=== PATIENT | male | born 1975 | race Caucasian/White ===

== ENCOUNTER 2019-12-30 12:09 | Outpatient (REF) | payer OTHER, SELFPAY ==
[2019-12-30 13:54] LABS: MANUAL DIFF FLAG NO
[2019-12-30 13:58] LABS: Basophils Percent Auto 0.5 % (0-2); Eosinophils Absolute Auto 0.2 X10*3/uL (0.0-0.4); Eosinophils Percent Auto 2.5 % (0-4); Hematocrit 45.5 % (42-52); Hemoglobin 15.2 g/dl (14.0-18.0); Imm Gran Abs Auto 0.03 X10*3/uL (0.00-0.03); Imm Gran Pct Auto 0.4 % (0.0-0.4); Lymphocytes Absolute Auto 2.3 X10*3/uL (1.2-4.9); Lymphocytes Percent Auto 28.7 % (20-40); Mean Corpuscular HGB Conc 33.4 g/dl (31.0-36.0); Mean Corpuscular Volume 89.7 fL (80-98); Mean Platelet Volume 11.9 fL (9.4-12.4); Monocytes Absolute Auto 0.4 X10*3/uL (0.1-1.2); Monocytes Percent Auto 4.3 % (2-11); Neutrophils Absolute Auto 5.2 X10*3/uL (2.0-8.3); Neutrophils Percent Auto 63.6 % (45-73); Platelet Count 260 X10*3/uL (160-400); Red Blood Count 5.07 X10*6/uL (4.60-5.80); Red Cell Distribution Width 12.5 % (11.0-16.0); White Blood Count 8.1 X10*3/uL (4.8-10.8)
[2019-12-30 14:29] LABS: Anion Gap 14 (12-20); Blood Urea Nitrogen 16 mg/dL (9-16); Calcium 9.2 mg/dL (8.4-10.2); Carbon Dioxide 28 mmol/L (22-29); Chloride 104 mmol/L (96-108); Estimated Glomerular Filt Rate > 60; Glucose Fasting 64 mg/dL (60-99); Iron 116 mcg/dL (45-160); Percent Iron Saturation 37 % (15-50); Potassium 4.5 mmol/l (3.3-5.1); Sodium 141 mmol/L (135-145); Total Iron Binding Capacity 311 mcg/dL (228-428); Unsaturated Iron Binding 195 ug/dL
[2019-12-30 14:39] LABS: Ferritin 193 ng/mL (20-250); TSH reflex Free T4 1.22 mIU/mL (0.32-4.0)
[2019-12-30 14:45] LABS: Vitamin B12 314 pg/mL (200-900)
== END 2019-12-30 12:10 | disposition home or self-care (01) ==
LOC: HO.HMGCLDS 12:09
PROVIDERS: PCP Nurse Practitioner Family; Visit Provider Nurse Practitioner Family
DX: R53.83 Other fatigue (principal)
CPT/HCPCS: 36415; 80048; 82607; 82728; 83540; 84443; 85025

== ENCOUNTER 2021-01-12 12:22 | Emergency (ER) | payer OTHER, SELFPAY ==
[2021-01-12 12:25] VITALS: BP 114/74; PULSE 77; RESP 17; TEMP 36.9; O2SAT 97; BMI 27.4
== END 2021-01-12 14:07 | disposition left against medical advice (07) ==
PROVIDERS: Emergency Provider Emergency Medicine; PCP Nurse Practitioner Family
DX: R51.9 Headache, unspecified (principal); R50.9 Fever, unspecified
CPT/HCPCS: 99281; 99282

== ENCOUNTER 2021-04-18 16:10 | Emergency (ER) | payer OTHER, SELFPAY ==
--- NOTE | ~2021-04-18 | CT_ITS ---
EXAMINATION: CT HEAD WITHOUT CONTRAST CLINICAL INFORMATION: Headache. COMPARISON: None. TECHNIQUE: Contiguous axial imaging was performed from the skull base to vertex without intravenous administration of contrast. This CT examination was performed using dose optimization techniques as appropriate, variously including the following: *Automated exposure control *Adjustment of mA and/or kV according to patient size (this includes techniques or standardized protocols for targeted exams where dose is matched to indication/reason for exam; i.e. extremities or head) *Use of iterative reconstruction technique DLP: 763 mGy-cm FINDINGS: There is no evidence of acute intracranial hemorrhage or edematous territorial infarction. There is no abnormal attenuation within the brain parenchyma. Zayas-white matter differentiation is preserved. The ventricles are normal in size and configuration. No evidence for obstructive hydrocephalus. No abnormal mass effect or midline shift. No extra-axial fluid collections. No acute soft tissue or osseous abnormalities. The mastoid air cells and paranasal sinuses are clear. CT/CT head/brain wo con IMPRESSION: No evidence of acute intracranial hemorrhage or edematous territorial infarction.
[2021-04-18 16:48] VITALS: BP 113/75; PULSE 78; RESP 16; TEMP 37.1; O2SAT 97; BMI 27.4
[2021-04-18 17:00] LABS: MANUAL DIFF FLAG NO
[2021-04-18 17:07] LABS: Basophils Absolute Auto 0.1 X10*3/uL (0.0-0.2); Basophils Percent Auto 0.6 % (0-2); Eosinophils Absolute Auto 0.4 X10*3/uL (0.0-0.4); Eosinophils Percent Auto 4.2 % (0-4); Hematocrit 41.8 % (42.0-52.0); Hemoglobin 14.4 g/dl (14.0-18.0); Imm Gran Abs Auto 0.03 X10*3/uL (0.00-0.03); Imm Gran Pct Auto 0.3 % (0.0-0.4); Lymphocytes Absolute Auto 2.6 X10*3/uL (1.2-4.9); Lymphocytes Percent Auto 30.4 % (20-40); Mean Corpuscular HGB Conc 34.4 g/dl (31.0-36.0); Mean Corpuscular Hemoglobin 30.3 pg (27.0-33.0); Mean Corpuscular Volume 87.8 fL (80.0-98.0); Mean Platelet Volume 10.8 fL (9.4-12.4); Monocytes Absolute Auto 0.5 X10*3/uL (0.1-1.2); Neutrophils Absolute Auto 5.1 x10*3/uL (2.0-8.3); Neutrophils Percent Auto 58.5 % (45-73); Platelet Count 261 X10*3/uL (160-400); Red Blood Count 4.76 X10*6/uL (4.60-5.80); Red Cell Distribution Width 12.9 % (11.0-16.0); White Blood Count 8.6 X10*3/uL (4.8-10.8)
[2021-04-18 17:23] LABS: Anion Gap 11 (12-20); Blood Urea Nitrogen 15 mg/dL (9-16); Calcium 9.9 mg/dL (8.4-10.2); Carbon Dioxide 30 mmol/L (22-29); Chloride 106 mmol/L (96-108); D Dimer High Sensitivity < 150 NG/ML; Estimated Glomerular Filt Rate > 60; Glucose Random 83 mg/dL (60-115); Potassium 4.6 mmol/L (3.3-5.1); Sodium 142 mmol/L (135-145)
[2021-04-18 19:34] VITALS: BP 134/67; PULSE 83; RESP 16; O2SAT 99
--- NOTE | 2021-04-18 19:39 | ED_ITS ---
HPI - Headache General Chief Complaint: Headache Stated Complaint: head pain Time Seen by Provider: 04/18/21 19:38 Source: patient Mode of arrival: ambulatory Limitations: no limitations History of Present Illness HPI Narrative: Patient is a 46 year old male presenting to the emergency department today with a headache. Patient states that for the last 3 weeks he has had a headache. Patient describes the headache as being diffuse and not in a specific area. Patient denies any dizziness, lightheadedness, abdominal pain, nausea, vomiting, fever, chills, blurry vision, double vision, loss of vision, chest pain, difficulty breathing, shortness of breath, back pain, night sweats, pain with urination, increased urinary frequency, increased urinary urgency, blood in his urine or stool, syncope or a near syncopal episode, recent trauma or falls, bowel incontinence, bladder incontinence, bowel retention, bladder retention, or any other complaints at this time. MD elicited complaint: headache Onset (ago): week(s) (3) Location: diffuse Related Data Home Medications Medication Instructions Recorded Confirmed buprenorphine 8 mg-naloxone 2 mg See Rx Instructions SUBLINGUAL 04/18/21 sublingual film DAILY Previous Rx's Medication Instructions Recorded cyclobenzaprine 5 mg tablet 5 mg PO BEDTIME PRN #10 tab 10/11/20 prednisone 20 mg tablet 20 mg PO .COMPLEX #18 tab 10/11/20 Allergies Allergy/AdvReac Type Severity Reaction Status Date / Time No Known Allergies Allergy Verified 04/18/21 15:37 Review of Systems Constitutional: Constitutional: Reports no additional constitutional complaints, Denies chills, Denies fever(s) and Denies night sweats Eyes: Eyes: Reports no additional eye complaints, Denies blurry vision, Denies change in vision, Denies diplopia, Denies eye discharge, Denies loss of vision and Denies eye pain ENT: Denies dizziness Cardiovascular: Cardiovascular: Reports no additional cardiovascular complaints, Denies chest pain, Denies lightheadedness, Denies Loss of Consciousness and Denies dyspnea Respiratory: Respiratory: Reports no additional respiratory complaints and Denies dyspnea Gastrointestinal: Gastrointestinal: Reports no additional gastrointestinal complaints, Denies abdominal pain, Denies melena, Denies hematochezia, Denies change in bowel habits and Denies change in stool character Genitourinary: Genitourinary: Reports no additional male genitourinary complaints, Denies hematuria, Denies oliguria, Denies difficulty urinating, Denies dysuria, Denies urinary frequency, Denies urinary hesitancy, Denies urinary incontinence and Denies urinary urgency Musculoskeletal: Musculoskeletal: Reports no additional musculoskeletal complaints, Denies numbness and Denies tingling Neurologic: Denies dizziness, Denies loss of vision, Denies numbness and Denies tingling Psychiatric: Psychiatric: Reports no additional psychiatric complaints Endocrine: Endocrine: Reports no additional endocrine complaints Hematologic/Lymphatic: Hematologic/Lymphatic: Reports no additional hematologic/lymphatic complaints Allergic/Immunologic: Allergic/Immunologic: Reports no additional allergic/immunologic complaints [facility] Past Medical History Attestation statement: The following information was validated with the patient. Source: old records reviewed Medical History Headache Hepatitis C Surgical History No pertinent past surgical history Family History Family History Father Depression Mother Liver failure Alcoholism Social History Social History Alcohol intake: never Patient Tobacco Use Status: Current everyday Tobacco user Years Smoked: since his 20s Advance Directives: No Physical Exam Vital Signs: Vital Signs: Last Vital Signs Temp 98.6 F 04/18/21 22:07 Pulse 74 04/18/21 22:07 Resp 18 04/18/21 22:07 BP 136/76 04/18/21 22:07 Pulse Ox 98 04/18/21 22:07 BMI result Body Mass Index 27.4 Const: General: cooperative, no acute distress, alert and awake Nutritional Appearance: well nourished Orientation/consciousness: patient oriented x3 Limitations: no limitations HENMT: Head: Yes normal to inspection and Yes atraumatic Ears: hearing grossly normal bilaterally and external ears normal General nose exam: Normal external nose present, no nasal discharge noted and no epistaxis Face and sinus: Yes normal facial exam, No abrasion and No laceration Mouth: Normal oral and palatal mucosa present, no drooling and no muffled voice Eyes: General: appearance normal, both eyes and all related structures Periorbital: periorbital findings normal Eyelids: Yes eyelids normal Conjunctivae: conjunctivae normal Pupils: Equal, round and reactive pupils present EOM: EOMs intact bilaterally Neck: Neck: Yes normal visual inspection, Yes full ROM and Yes no lymphadenopathy Chest: Chest palpation & inspection: normal inspection of the chest Resp: Effort & Inspection: normal respiratory effort and able to speak in complete sentences Auscultation: clear to auscultation bilaterally Cardio: Rate: regular rate Rhythm: regular rhythm GI: Inspection: Yes normal to inspection Neuro: General: patient oriented x3 and moves all extremities Cranial nerves: Yes Equal, round and reactive pupils present Cognition (Neuro): normal cognition Motor exam (neuro): 5/5 motor strength present throughout Sensory Exam: Normal double simultaneous stimulation for sensation Coordination: [id number] test normal Extrem: General: Yes normal to inspection, Yes full ROM and Yes capillary refill normal Psych: Appearance: grossly normal Mental Status: mental status grossly no rmal Affect: normal affect Attitude: cooperative Thought process: Normal thought process present Thought content: Normal thought content present Insight: Good insight present (Psych) MDM - Headache MDM Narrative Medical decision making narrative: Patient is a 46 year old male presenting to the emergency department today with a headache. Patient's physical exam was unremarkable including a normal neurological exam. Patient's blood work was unremarkable.Patient's head CT showed no acute process. I explained my physical exam findings as well as all test results to the patient. I answered all questions asked by the patient. I stressed the importance of the patient taking his medication as prescribed. I stressed the importance of the patient following up with his primary care provider. I stressed the importance of the patient returning to the emergency de partment immediately if his symptoms were to worsen or if he were to develop any dizziness, shortness of breath, difficulty breathing, chest pain, blurry vision, loss of vision, nausea, vomiting, abdominal pain, fever, chills, back pain, or any other complaints. Patient verbalized agreement and understanding with this treatment plan and discharge. Differential Diagnosis Differential diagnosis: Likely tension headache and headache Medical Records Attestation: I reviewed the patient's medical records. Lab Data Attestation: I reviewed the patient's lab results. Result diagrams: 04/18/21 16:57 04/18/21 16:57 Labs: Lab Results 04/18/21 04/18/21 04/18/21 Range/Units 16:57 16:57 16:57 WBC 8.6 (4.8-10.8) X10*3/uL RBC 4.76 (4.60-5.80) X10*6/uL Hgb 14.4 (14.0-18.0) g/dl Hct 41.8 L (42.0-52.0) % MCV 87.8 (80.0-98.0) fL MCH 30.3 (27.0-33.0) pg MCHC 34.4 (31.0-36.0) g/dl RDW 12.9 (11.0-16.0) % Plt Count 261 (160-400) X10*3/uL MPV 10.8 (9.4-12.4) fL Immature Gran % (Auto) 0.3 (0.0-0.4) % Neut % (Auto) 58.5 (45-73) % Lymph % (Auto) 30.4 (20-40) % Bartholomew % (Auto) 6.0 (2-11) % Eos % (Auto) 4.2 H (0-4) % Baso % (Auto) 0.6 (0-2) % Lymph # (Auto) 2.6 (1.2-4.9) X10*3/uL Bartholomew # (Auto) 0.5 (0.1-1.2) X10*3/uL Eos # (Auto) 0.4 (0.0-0.4) X10*3/uL Baso # (Auto) 0.1 (0.0-0.2) X10*3/uL Abs Immat Gran (auto) 0.03 (0.00-0.03) X10*3/uL Absolute Neuts (auto) 5.1 (2.0-8.3) x10*3/uL Absolute Nucleated RBC 0.000 (0.0-0.012) X10*3/uL Nucleated RBC % (auto) 0.0 (0.0-0.2) /100WBC D-Dimer High Sensitivty < 150 NG/ML Sodium 142 (135-145) mmol/L Potassium 4.6 (3.3-5.1) mmol/L Chloride 106 (96-108) mmol/L Carbon Dioxide 30 H (22-29) mmol/L Anion Gap 11 L (12-20) BUN 15 (9-16) mg/dL Creatinine 0.95 (0.5-1.4) mg/dL Estim Creat Clear Calc 97.0 Estimated GFR > 60 Random Glucose 83 (60-115) mg/dL Calcium 9.9 D (8.4-10.2) mg/dL Urine Color Urine Appearance Urine pH (5.0-8.0) Ur Specific [place] (1.005-1.025) Urine Protein (NEG-TRACE) MG/DL Urine Glucose (UA) (NEG) MG/DL Urine Ketones (NEG) MG/DL Urine Blood (NEG) Urine Nitrite (NEG) Ur Leukocyte Esterase (NEG) Urine RBC (0) /HPF Urine WBC (0-4) /HPF Ur Squamous Epith Cells /LPF Amorphous Sediment /LPF Urine Bacteria /LPF 04/18/21 Range/Units 19:47 WBC (4.8-10.8) X10*3/uL RBC (4.60-5.80) X10*6/uL Hgb (14.0-18.0) g/dl Hct (42.0-52.0) % MCV (80.0-98.0) fL MCH (27.0-33.0) pg MCHC (31.0-36.0) g/dl RDW (11.0-16.0) % Plt Count (160-400) X10*3/uL MPV (9.4-12.4) fL Immature Gran % (Auto) (0.0-0.4) % Neut % (Auto) (45-73) % Lymph % (Auto) (20-40) % Bartholomew % (Auto) (2-11) % Eos % (Auto) (0-4) % Baso % (Auto) (0-2) % Lymph # (Auto) (1.2-4.9) X10*3/uL Bartholomew # (Auto) (0.1-1.2) X10*3/uL Eos # (Auto) (0.0-0.4) X10*3/uL Baso # (Auto) (0.0-0.2) X10*3/uL Abs Immat Gran (auto) (0.00-0.03) X10*3/uL Absolute Neuts (auto) (2.0-8.3) x10*3/uL Absolute Nucleated RBC (0.0-0.012) X10*3/uL Nucleated RBC % (auto) (0.0-0.2) /100WBC D-Dimer High Sensitivty NG/ML Sodium (135-145) mmol/L Potassium (3.3-5.1) mmol/L Chloride (96-108) mmol/L Carbon Dioxide (22-29) mmol/L Anion Gap (12-20) BUN (9-16) mg/dL Creatinine (0.5-1.4) mg/dL Estim Creat Clear Calc Estimated GFR Random Glucose (60-115) mg/dL Calcium (8.4-10.2) mg/dL Urine Color YELLOW Urine Appearance CLEAR Urine pH 7.5 (5.0-8.0) Ur Specific [place] 1.020 (1.005-1.025) Urine Protein NEG (NEG-TRACE) MG/DL Urine Glucose (UA) NEG (NEG) MG/DL Urine Ketones NEG (NEG) MG/DL Urine Blood NEG (NEG) Urine Nitrite NEG (NEG) Ur Leukocyte Esterase NEG (NEG) Urine RBC 0-2 (0) /HPF Urine WBC 0-2 (0-4) /HPF Ur Squamous Epith Cells NONE /LPF Amorphous Sediment 4+ /LPF Urine Bacteria NONE /LPF Imaging Data CT scan - head: Attestation: I personally reviewed and interpreted this imaging study as follows: Radiologist's impression: EXAMINATION: CT HEAD WITHOUT CONTRAST CLINICAL INFORMATION: Headache.? COMPARISON: None. TECHNIQUE: Contiguous axial imaging was performed from the skull base to vertex without intravenous administration of contrast. This CT examination was performed using dose optimization techniques as appropriate, variously including the following: *Automated exposure control *Adjustment of mA and/or kV according to patient size (this includes techniques or standardized protocols for targeted exams where dose is matched to indication/reason for exam; i.e. extremities or head) *Use of iterative reconstruction technique DLP: 763 mGy-cm FINDINGS: There is no evidence of acute intracranial hemorrhage or edematous territorial infarction. There is no abnormal attenuation within the brain parenchyma. Zayas-white matter differentiation is preserved. The ventricles are normal in size and configuration. No evidence for obstructive hydrocephalus. No abnormal mass effect or midline shift. No extra-axial fluid collections. No acute soft tissue or osseous abnormalities. The mastoid air cells and paranasal sinuses are clear. CT/CT head/brain wo con IMPRESSION: No evidence of acute intracranial hemorrhage or edematous territorial infarction. Dictated By: Cathy Saleem Signed By: Electronically signed by Cathy? Stiven 04/18/212115 Discharge Plan Discharge Clinical Impression: Headache Patient Disposition: Home, Self-Care Instructions: Acute Headache (ED), Acute Headache (DC) Additional Instructions: Follow up with your primary care provider. Return to the emergency department immediately if your symptoms worsen or if you develop any dizziness, shortness of breath, difficulty breathing, chest pain, blurry vision, loss of vision, nausea, vomiting, abdominal pain, fever, chills, back pain, or any other com plaints. Prescriptions: No Action cyclobenzaprine 5 mg tablet 5 mg PO BEDTIME PRN (Reason: muscle spasm) Qty: 10 0RF prednisone 20 mg tablet 20 mg PO .COMPLEX Qty: 18 0RF Rx Instructions: 20 mg PO 3 p.o. daily for 3 days followed by 2 p.o. daily for 3 days fo llowed by 1 p.o. daily for 3 days; buprenorphine-naloxone 8-2 mg film See Rx Instructions sublingual DAILY 0RF Rx Instructions: 8 sublingual daily; Referrals: Nathan Acevedo FNP-BC [Primary Care Provider] - 2 days Stand Alone Forms: Work/School Release Interventions: ED Discharge Assessment Last Done: 04/18/21 22:06 Discharge Date/Time: 04/18/21 22:08 Print Language: Korean
[2021-04-18 19:54] LABS: Appearance Urine CLEAR; Color Urine YELLOW; Glucose Urine UA NEG (NEG); Leukocyte Esterase Urine NEG (NEG); Nitrite Urine NEG (NEG); PH 7.5 (5.0-8.0); Urine Blood NEG (NEG); Urine Ketones NEG (NEG); Urine Protein NEG (NEG-TRACE)
[2021-04-18 20:00] LABS: Amorphous Sediment Urine 4+ /LPF; RBC Urine 0-2 /HPF (0); WBC Urine 0-2 /HPF (0-4)
[2021-04-18 21:28] VITALS: BP 121/81; PULSE 71; RESP 18; TEMP 37; O2SAT 98
[2021-04-18 22:07] VITALS: BP 136/76; PULSE 74; RESP 18; TEMP 37; O2SAT 98
== END 2021-04-18 22:08 | disposition home or self-care (01) ==
PROVIDERS: Emergency Provider Emergency Medicine Emergency Medical Services; PCP Nurse Practitioner Family
DX: R51.9 Headache, unspecified (principal); F17.200 Nicotine dependence, unspecified, uncomplicated
CPT/HCPCS: 36415; 70450; 80048; 81001; 85025; 85379; 99284

== ENCOUNTER 2021-12-17 10:05 | Outpatient (REF) | payer OTHER, SELFPAY ==
[2021-12-17 11:25] LABS: Appearance Urine Clear; Color Urine Yellow; Glucose Urine UA Negative (Negative); Leukocyte Esterase Urine Trace (Negative); Nitrite Urine Negative (Negative); PH 6.5 (5.0-9.0); UMIC TRIGGER UACC YES; Urine Blood Negative (Negative); Urine Ketones Negative (Negative); Urine Protein Negative (Neg-Trace)
[2021-12-17 11:29] LABS: Bacteria Urine None Seen (None Seen); Hyaline Casts Urine 0-2 /LPF (0-2); RBC Urine 0-2 /HPF (0-2); Squamous Epithelial Cell Urine 0-2 /HPF (0-2); WBC Urine 0-5 /HPF (0-5)
[2021-12-17 12:19] LABS: TSH reflex Free T4 0.92 uIU/mL (0.32-4.0)
[2021-12-17 12:25] LABS: Alanine Aminotransferase 16 U/L (0-40); Albumin Level 4.3 g/dL (3.5-5.0); Alkaline Phosphatase 85 U/L (39-117); Anion Gap 13 (12-20); Aspartate Amino Transferase 18 U/L (5-37); Bilirubin Total 0.8 mg/dL (0.0-1.0); Blood Urea Nitrogen 13 mg/dL (9-16); Calcium 9.2 mg/dL (8.4-10.2); Carbon Dioxide 27 mmol/L (22-29); Chloride 105 mmol/L (96-108); Cholesterol 185 mg/dL; Estimated Glomerular Filt Rate > 60; Glucose Fasting 89 mg/dL (60-99); HDL Cholesterol 40 mg/dL; LDL Cholesterol Calculated 123 mg/dl; Potassium 4.4 mmol/L (3.3-5.1); Sodium 141 mmol/L (135-145); Total Protein 6.9 g/dL (6.5-8.0); Triglycerides 110 mg/dL
== END 2021-12-17 10:06 | disposition home or self-care (01) ==
LOC: HO.HMGCLDS 10:05
PROVIDERS: PCP Nurse Practitioner Family; Visit Provider Nurse Practitioner Family
DX: Z00.00 Encounter for general adult medical examination without abnormal findings (principal)
CPT/HCPCS: 36415; 80053; 80061; 81001; 84443

== ENCOUNTER → 2022-05-08 14:38 | Outpatient (BNVA) | payer OTHER, SELFPAY | PROVIDERS: PCP Nurse Practitioner Family; Visit Provider Physician Assistant | DX: Z01.818 Encounter for other preprocedural examination (principal) | CPT/HCPCS: 99202 ==

== ENCOUNTER 2022-08-13 09:40 | Outpatient (REF) | payer OTHER, SELFPAY ==
--- NOTE | ~2022-08-13 | XR_ITS ---
EXAMINATION: XR ELBOW, LEFT CLINICAL INFORMATION: Contusion of left elbow COMPARISON: None available. TECHNIQUE: AP, lateral, and oblique views of the left elbow. FINDINGS: The bones and soft tissues are normal. No fracture or joint effusion. Alignment is anatomic. Joint spaces are maintained. XR/XR elbow LT min 3V IMPRESSION: Normal left elbow.
== END 2022-08-13 09:41 | disposition home or self-care (01) ==
LOC: HO.HMGCX 09:40
PROVIDERS: PCP Nurse Practitioner Family; Visit Provider Internal Medicine
DX: S50.02XA Contusion of left elbow, initial encounter (principal)
CPT/HCPCS: 73080

== ENCOUNTER 2022-10-24 16:00 | Outpatient (AMB) | payer OTHER, SELFPAY ==
[2022-10-24 16:32] VITALS: BP 120/82; PULSE 78; O2SAT 98; BMI 26.5
--- NOTE | 2022-10-24 16:32 | A.OFFPC_ITS ---
Vital Signs 10/24/22 16:32 Height 5 ft 6 in Weight 164 lb 4 oz BMI 26.5 BP 120/82 Blood Pressure Location Lt brachial Position Sitting Pulse 78 Pulse Source Pulse Oximeter Pulse Oximetry (%) 98 Oxygen Delivery Method Room Air Intake Visit Reasons: Annual PE Allergies No Known Allergies Allergy (Verified 10/24/22 16:34) Tobacco use date assessed: 10/24/22 Dental Screening Dental Screen Date: 10/24/22 Did you have a dental visit in the last 12 months?: Yes Did you have a dental problem in the last 6 months where you did not have access to dental care?: No Was dental information given to patient?: Patient has dentist HPI Annual PE HPI Details Pt is here for a PE. Will order labs. Colon screen is scheduled. Pt does smoke up to a pack at day, has since around age 17. He denies any SOB, CP, but does report pain, describing discomfort to his laryngopharynx region (lower posterior pharynx). Nothing abnormal noted on exam, will refer to ENT for possible scope. [facility] Medical History Headache Hepatitis C Surgical History No pertinent past surgical history Family History Father Depression Substance use disorder Mother Liver failure Alcoholism Substance use disorder Brother Substance use disorder Mental health disorder Sister Mental health disorder Social History Housing: House Alcohol intake: never Patient Tobacco Use Status: Current everyday Tobacco user Cigarettes Per Day: 12 Years Smoked: since his 20s e-Cigarette/Vaping Use: Never Used Second Hand Smoke Exposure: Yes service: No Current occupational status: employed Current occupation: [employer] Current occupational exposures/hazards: Yes Cognitive needs: No Hearing needs: No Vision needs: No Questionnaire Thrive Questionnaire Date Thrive assessed: 06/05/21 NATHALIE-7 AMB Questionnaire NATHALIE-7 Date NATHALIE - 7 assessed: 03/19/22 Source: Developed by Drs. Joseph Guthrie, Kiera Byrd, Epifanio Green and colleagues, with an educational yoly from [employer]. Review of Systems Const Denies chills and Denies fever(s) Eyes Denies blurry vision ENT Denies vertigo, Denies dizziness and Denies sore throat Card Denies chest pain at rest, Denies chest pain with activity, Denies diaphoresis, Denies dyspnea and Denies dyspnea on exertion Resp Denies cough, Denies dyspnea, Denies dyspnea on exertion and Denies wheezing GI Denies abdominal pain, Denies melena, Denies hematochezia, Denies constipation, Denies diarrhea and Denies loose stools Denies hematuria Musc Denies numbness and Denies tingling Skin/Breast Denies lesions Neuro Denies vertigo, Denies dizziness, Denies numbness and Denies tingling Psych Denies anxiety, Denies depression, Denies homicidal ideation, Denies suicidal ideation and Denies other (substance abuse) Aller/Immun Denies wheezing Physical exam (Primary Care) Vital Signs: Last Vital Signs Pulse 78 10/24/22 16:32 BP 120/82 10/24/22 16:32 Pulse Ox 98 10/24/22 16:32 Oxygen Delivery Method Room Air 10/24/22 16:32 BMI result Body Mass Index 26.5 Tobacco/Smoking Status: Tobacco use Status Tobacco use date assessed 10/24/22 10/24/22 16:37 Patient Tobacco Use Status Current everyday Tobacco 10/24/22 16:37 e-Cigarette/Vaping Use Never Used 10/24/22 16:37 Thrive Assessment: Date of Thrive Assessment Date Thrive assessed 06/05/21 10/24/22 16:37 Const General: cooperative Nutritional Appearance: well nourished Orientation/consciousness: patient oriented x3 HENMT Head: Yes normal to inspection, Yes normocephalic and Yes atraumatic Ears: TM's normal bilaterally Throat: Yes posterior oropharynx normal, Yes tonsils normal, Yes uvula midline and No peritonsillar mass Eyes General: appearance normal, both eyes and all related structures Alignment and Position: alignment normal and position normal Neck Neck: Yes normal visual inspection and Yes no lymphadenopathy Thyroid: Thyroid normal Lymphatic: no lymphadenopathy noted Resp Effort & Inspection: normal respiratory effort Auscultation: clear to auscultation bilaterally Cardio Rate: regular rate Rhythm: regular rhythm Heart sounds: S1 normal heart sound present, S2 normal heart sound present and no murmurs GI Palpation (GI): Soft to palpation and nontender Auscultation: normal bowel sounds Male General Exam: Yes normal external exam Penis: normal penis Scrotum: scrotum normal, testes descended bilaterally and no inguinal hernias Testes: no testicular mass Skin Rashes: no rashes Neuro General: patient oriented x3, moves all extremities, no focal motor deficits and deep tendon reflexes 2+ bilaterally Motor exam (neuro): 5/5 motor strength present throughout Romberg Test: Negative Psych Appearance: grossly normal Mental Status: mental status grossly normal Speech and movement: Normal speech and movement present Affect: normal affect Attitude: cooperative Thought process: Normal thought process present Thought content: Normal thought content present Insight: Good insight present (Psych) Judgement: Good judgement present (Psych) Assessment and Plan Assessment & Plan (1) Physical exam: Code(s): Z00.00 - Encounter for general adult medical examination without abnormal findings (2) Pain pharynx: Code(s): J39.2 - Other diseases of pharynx Plan The patient agreed to the use of a medical numerical control operator for this encounter. Scribed for GLENN Robertson by Margie Pena medical numerical control operator, on 10/24/2022 at 16:45 EST. Coding Level of Care Code Est Pt Prev Care 40-64y(06142) Diagnoses Physical exam Z00.00 Pain pharynx J39.2
== END 2022-10-24 17:17 | disposition home or self-care (01) ==
PROVIDERS: PCP Nurse Practitioner Family; Visit Provider Nurse Practitioner Family
DX: Z00.00 Encounter for general adult medical examination without abnormal findings (principal); J39.2 Other diseases of pharynx
CPT/HCPCS: 99396

== ENCOUNTER 2022-11-22 08:55 | Day surgery (SDC) | payer OTHER, SELFPAY ==
[2022-08-21 13:00] VITALS: BMI 28.6
--- NOTE | 2022-11-21 12:09 | HO.ANESPROP2 ---
HPI - Anesthesia Eval Consult details Narrative: 47yo M for Colonoscopy Smoker PMFSH Active Problems Active Problems: All Active Problems (Updated 10/24/22 @ 17:25 by Nathan Acevedo, [facility]) Pain pharynx (Acute) Contusion of elbow, left (Acute) Depression with anxiety (Acute) Screening for colon cancer (Acute) Elevated blood pressure reading (Acute) Physical exam (Acute) Pain in head (Acute) Blurry vision, bilateral (Acute) Fatigue (Acute) Vasectomy evaluation (Acute) Skin lesion (Acute) Lumbar strain (Acute) Past Medical History Medical History (Updated 12/05/22 @ 12:55 by Mariann Rodriguez PA-C) Anxiety PTSD (post-traumatic stress disorder) Heartburn Asthma Headache Hepatitis C Family History Family History Father Depression Substance use disorder Mother Liver failure Alcoholism Substance use disorder Brother Substance use disorder Mental health disorder Sister Mental health disorder Surgical History Surgical History Hx of colonoscopy Hx of esophagogastroduodenoscopy Social History Social History Housing: House Alcohol intake: never Patient Tobacco Use Status: Current everyday Tobacco user Tobacco use type: Cigarette Cigarettes Per Day: 18 Years Smoked: since his 20s e-Cigarette/Vaping Use: Never Used Second Hand Smoke Exposure: Yes service: No Current occupational status: employed Current occupation: [employer] Current occupational exposures/hazards: Yes Cognitive needs: No Hearing needs: No Vision needs: No Meds Allergies Allergy/AdvReac Type Severity Reaction Status Date / Time No Known Allergies Allergy Verified 12/05/22 08:15 Home Medications Medication Instructions Recorded Confirmed Last Taken Type buprenorphine 8 mg-naloxone 2 mg See Rx Instructions sublingual 04/18/21 12/05/22 11/22/22 03:00 History sublingual film DAILY Medical Marijuana 06/05/21 12/05/22 Unknown History Exam Exam Date and Time: November 21, 2022 1209 Height,Weight and Vital Signs: Height 5 ft 6 in Weight 80.286 kg Assessment and Plan Assessment Anesthesia Assessment: Chart Reviewed
[2022-11-22 09:46] VITALS: BP 112/71; PULSE 64; RESP 15; TEMP 36.3; O2SAT 99
--- NOTE | 2022-11-22 09:54 | HO.ANESPROP2 ---
[facility] Active Problems Active Problems: All Active Problems (Updated 11/22/22 @ 09:31 by Carlita Sampson RN) Pain pharynx (Acute) Contusion of elbow, left (Acute) Depression with anxiety (Acute) Screening for colon cancer (Acute) Elevated blood pressure reading (Acute) Physical exam (Acute) Pain in head (Acute) Blurry vision, bilateral (Acute) Lumbar strain (Acute) Skin lesion (Acute) Vasectomy evaluation (Acute) Fatigue (Acute) Past Medical History Medical History Anxiety PTSD (post-traumatic stress disorder) Heartburn Asthma Headache Hepatitis C Family History Family History Father Depression Substance use disorder Mother Liver failure Alcoholism Substance use disorder Brother Substance use disorder Mental health disorder Sister Mental health disorder Family history of problems with anesthesia: No Surgical History Surgical History Hx of esophagogastroduodenoscopy History of Problems with Anesthesia: No Social History Social History Housing: House Alcohol intake: never Patient Tobacco Use Status: Current everyday Tobacco user Tobacco use type: Cigarette Cigarettes Per Day: 18 Years Smoked: since his 20s e-Cigarette/Vaping Use: Never Used Second Hand Smoke Exposure: Yes Use of substances other than those prescribed or required for medical reasons: Yes Substance Use Type Other:: medical Are you DNR?: No Advance Directives: No Advance Directives Information Provided: Yes service: No Current occupational status: employed Current occupation: [employer] Current occupational exposures/hazards: Yes Cognitive needs: No Hearing needs: No Vision needs: No Meds Allergies Allergy/AdvReac Type Severity Reaction Status Date / Time No Known Allergies Allergy Verified 11/22/22 09:42 Active Medications: Current Medications Albuterol Sulfate (Albuterol Sulfate (0.083%) 2.5 Mg/3 Ml Vial.Neb) 2.5 mg INHALE ONCE PRN PRN Reason: Shortness of Breath/Wheezing Lactated Ringer's (Lr) 1,000 mls @ 100 mls/hr IVCONT .Q10H [facility] Home Medications Medication Instructions Recorded Confirmed Last Taken Type buprenorphine 8 mg-naloxone 2 mg See Rx Instructions sublingual 04/18/21 11/22/22 11/22/22 03:00 History sublingual film DAILY Medical Marijuana 06/05/21 03/19/22 Unknown History Exam Exam Date and Time: November 22, 2022 0954 Height,Weight and Vital Signs: Height 5 ft 6 in Weight 80.286 kg Airway Mallampati Class: II TM Dist: >3cm Neck ROM: Full Heart: RRR Lungs: CTA Assessment and Plan Assessment Anesthesia Assessment: Anesthesia Plan Discussed, Smoking Cess. Discussed and Chart Reviewed Final Anesthetic Review Family History of Problems with Anesthesia: No History of Problems with Anesthesia: No NPO: Yes ASA Class: II Final Preanesthetic Review: Meds/Allgs Chart Reviewed, Consent Obtained/Reviewed and Anes Risks/Benef Reviewed Patient Risk: Low Procedure Risk: Low Anesthetic Plan Anesthetic Plan: MAC: Disposition: Standard PACU
[2022-11-22] MEDS: Lactated Ringers 1,000 ML 100 ML IVCONT (10:02)
--- NOTE | 2022-11-22 10:57 | P.HPSUR_ITS ---
Pre-Procedural Eval Section A Date of Service: 11/22/22 Section B Chief Complaint: Encounter for screening for malignant neoplasm of Relevant Family History (Specify if Yes): No Relevant Social History: Tobacco Use (ex substance abuse) Present Medications: see Short Stay Collaborative assessment Medical History: Significant History (Anxiety PTSD (post-traumatic stress disorder) Heartburn Asthma Headache Hepatitis C) History of Previous Operations: No relevant previous surgery (EGD) Allergies: Allergies Allergy/AdvReac Type Severity Reaction Status Date / Time No Known Allergies Allergy Verified 11/22/22 09:42 Review of Systems Sugical H&P ROS: Negative: Constitution, Cardiovascular, Respiratory, Neurological, Psychiatric, Hem-Onc, Allergic/Immunologic, Gastrointestinal, Genitourinary, Musculoskeletal, Integumentary, Endocrine and Eyes/Ears/Nose/Th roat Exam Surgical H&P Exam: Normal: HEENT, Normal: Heart, Normal: Lungs, Normal: Extremities, Normal: Abdomen, Normal: Skin and Normal: Neurological Plan Diagnosis/Plan: Unchanged I have reviewed the history and physical and performed a pertinent physical examination on my patient. No changes have occurred unless specified. Time Spent With Patient Time: Total time managing care of this patient today ____ minutes.
--- NOTE | 2022-11-22 11:23 | P.OP_ITS ---
Operative Note Operative Note Date of Service: 11/22/22 Narrative: Operative Information Procedure Description: Colonoscopy Indication: screening Anesthesia: MAC COLONOSCOPY Instrument: Olympus variable stiffness pediatric scope 190L Colonoscopy Monitoring: Vital signs and clinical assessment, continuous EKG monitoring, Pulse oximetry, Carbon Dioxide monitoring and blood pressure monitoring were done throughout the procedure. Colon withdrawal time was 9 minutes. Procedure: The patient was placed in the left lateral decubitis position and pre-procedure medications were administered. After a digital rectal examination of the ano-rectum, the video colonoscope was inserted into the rectum and advanced through the colon to the cecum/TI. The colonoscope was slowly withdrawn in a retrograde panoramic fashion and the colon mucosa was carefully examined including a retroflexed view of the rectum. Findings and interventions are described below. Procedure Difficulty: easy Findings: Terminal Ileum-normal Cecum:normal Ascending Colon: 6-8 mm sessile polyp removed with cold snare Transverse Colon -normal Descending Colon:normal Sigmoid Colon: mild diverticulosis Rectum: Retroflexion with medium to large internal hemorrhoids, grade I Anorectum - normal Colon preparation: [place] Bowel Preparation Scale Right colon; 2 Transverse colon: 2 Left colon; 3 (0 = Unprepared colon segment with mucosa not seen due to solid stool that cannot be cleared. 1 = Portion of mucosa of the colon segment seen, but other areas of the colon segment not well seen due to staining, residual stool and/or opaque liquid. 2 = Minor amount of residual staining, small fragments of stool and/or opaque liquid, but mucosa of colon segment seen well. 3 = Entire mucosa of colon segment seen well with no residual staining, small fragments of stool or opaque liquid) Impression and Post Procedure Diagnosis: polyp internal hemorrhoids diverticular disease Plan: High fiber diet leaflet Avoid straining at stool, epsom salts and sitz bath, anusol supps or cream Repeat Colonoscopy in 5-7 years if adenomatous, 10 yrs if benign or earlier if clinically indicated Above findings were reviewed with the patient and relevant handouts were provided if indicated.
[2022-11-22 11:32] VITALS: BP 88/49; PULSE 66; RESP 16; TEMP 36.8; O2SAT 97
[2022-11-22 11:47] VITALS: BP 101/71; PULSE 72; RESP 14; O2SAT 98
--- NOTE | 2022-11-22 12:00 | HO.POSTANES ---
Post Anesthesia Evaluation Post Anesthesia Evaluation Date of Service: 11/22/22 Vital Signs: Vital Signs Temp Pulse Resp BP Pulse Ox O2 Del Method 11/22/22 11:47 72 14 101/71 98 Room Air 11/22/22 11:32 98.3 F 66 16 88/49 L 97 Room Air 11/22/22 09:46 97.3 F 64 15 112/71 99 Room Air Anesthesia: Monitored Mental Status: Awake Pain Control: Satisfactory Nausea/Vomiting: None Hydration: Adequate Anesthesia-Related Issues: No Anes. Related Issues
[2022-11-22 12:02] VITALS: BP 108/67; PULSE 68; RESP 16; TEMP 36.8; O2SAT 99
== END 2022-11-22 12:05 | disposition home or self-care (01) ==
PROVIDERS: PCP Nurse Practitioner Family; Visit Provider Internal Medicine Gastroenterology
PROC: 0DJD8ZZ Inspection of Lower Intestinal Tract, Via Natural or Artificial Opening Endoscopic (ICD-10-PCS; CPT 45378; principal; 2022-11-22 10:50)
DX: Z12.11 Encounter for screening for malignant neoplasm of colon (principal); D12.2 Benign neoplasm of ascending colon; K57.30 Diverticulosis of large intestine without perforation or abscess without bleeding; K64.0 First degree hemorrhoids; J45.909 Unspecified asthma, uncomplicated; R12 Heartburn; F41.1 Generalized anxiety disorder; F43.10 Post-traumatic stress disorder, unspecified; Z86.19 Personal history of other infectious and parasitic diseases; Z79.899 Other long term (current) drug therapy; F17.210 Nicotine dependence, cigarettes, uncomplicated
CPT/HCPCS: 45385; 88305

== ENCOUNTER → 2022-11-22 08:55 | Outpatient (BNV) | payer OTHER, SELFPAY | PROVIDERS: PCP Nurse Practitioner Family; Visit Provider Internal Medicine Gastroenterology | DX: Z12.11 Encounter for screening for malignant neoplasm of colon (principal); D12.2 Benign neoplasm of ascending colon; K57.30 Diverticulosis of large intestine without perforation or abscess without bleeding; K64.9 Unspecified hemorrhoids | CPT/HCPCS: 45385 ==

== ENCOUNTER 2022-12-05 07:49 | Outpatient (AMB) | payer OTHER, SELFPAY ==
--- NOTE | 2022-12-05 08:10 | MHC.OFFVIS ---
Intake Vital Signs 12/05/22 08:18 Height 5 ft 2 in Weight 164 lb BMI 30.0 BP 92/55 L Blood Pressure Location Lt brachial Position Sitting Pulse 65 Intake Visit Reasons: S/p colon-Jose Ramon Intake Note: Patient follow up for Colonoscopy results. Patient denies any other GI issues. Rn Transplant Required: No Accompanied by: Self / Same As Patient Allergies No Known Allergies Allergy (Verified 12/05/22 08:15) Medication List - Last Reconciled 12/05/22 by Mariann Rodriguez PA-C buprenorphine-naloxone 8-2 mg 8 sublingual daily; [Medical Marijuana ] HPI HPI Comments History of Present Illness Details A 47 y/o male f/o after index screening colonoscopy- he tolerated well-he says he was very nervous waiting for results No GI or general complaints Good appetite Normal bowels Reviewed procedure report, pathology and recommendations [facility] Medical History (Updated 12/05/22 @ 12:55 by Mariann Rodriguez PA-C) Anxiety PTSD (post-traumatic stress disorder) Heartburn Asthma Headache Hepatitis C Surgical History Hx of colonoscopy Hx of esophagogastroduodenoscopy Family History Father Depression Substance use disorder Mother Liver failure Alcoholism Substance use disorder Brother Substance use disorder Mental health disorder Sister Mental health disorder Social History Housing: House Alcohol intake: never Patient Tobacco Use Status: Current everyday Tobacco user Tobacco use type: Cigarette Cigarettes Per Day: 18 Years Smoked: since his 20s e-Cigarette/Vaping Use: Never Used Second Hand Smoke Exposure: Yes service: No Current occupational status: employed Current occupation: [employer] Current occupational exposures/hazards: Yes Cognitive needs: No Hearing needs: No Vision needs: No Review of Systems Const All systems reviewed & are unremarkable except as noted in HPI and below Card Denies chest pain and Denies dyspnea Resp Denies dyspnea GI Denies abdominal pain and Denies change in bowel habits Physical Exam Vital Signs: Last Vital Signs Pulse 65 12/05/22 08:18 BP 92/55 L 12/05/22 08:18 BMI result Body Mass Index 30.0 Const General: cooperative, healthy appearing, comfortable and no acute distress Orientation/consciousness: patient oriented x3 Limitations: no limitations Neuro General: patient oriented x3 Psych Appearance: grossly normal and well kempt Mental Status: mental status grossly normal Speech and movement: Normal speech and movement present Affect: normal affect and Anxious affect present Attitude: cooperative Thought content: Normal thought content present Insight: Good insight present (Psych) Judgement: Good judgement present (Psych) Results Reviewed Results Reviewed: mpression and Post Procedure Diagnosis: polyp internal hemorrhoids diverticular disease Plan: High fiber diet leaflet Avoid straining at stool, epsom salts and sitz bath, anusol supps or cream Repeat Colonoscopy in 5-7 years if adenomatous, 10 yrs if benign or earlier if clinically indicated Name: Jason Honeycutt Age/Sex: 47/M Attending: Debi Omer MD : 1975 Submitted by: Debi Omer MD Copies to: Nathan Acevedo MR #: [id number] Status: [facility] Collected: 11/22/22 Location: [facility] Received: 11/22/22 Diagnosis Colon, ascending, polypectomy: Tubular adenoma; negative for high-grade dysplasia or carcinoma. Clinical History Pre-Op Dx: Colon cancer screening Post-Op Dx: Colon polyp, diverticulosis, hemorrhoids Microscopic Description Microscopic sections reviewed. Material Received Ascending colon polyp Gross Description Received in formalin labeled ascending colon polyp are multiple robert soft tissue fragments averaging 0.3 cm, entirely submitted in cassette labeled A. Copies To Nathan Acevedo-SANTOSH [address] [place] [address] [place] [id number] Debi Omer MD [address] [place] [address] [place] [id number] NOTE: Unless otherwise stated, all tissue is formalin-fixed and paraffin-embedded. Some or all of the immunohistochemical tests reported herein may have been developed and their performance characteristics determined by [facility]. They have not been cleared or approved by the U.S. Food and Drug Administration (FDA). However, the FDA has determined that such clearance or approval is not necessary. This laboratory is certified under the Clinical Laboratory Improvement Amendments of 1988 (CLIA) as qualified to perform high complexity clinical laboratory testing. Electronically Signed By: Julio Benson MD 11/25/22 5967 Patient: Jason Honeycutt Age/Sex: 47/M MR#: [id number] Page 1 of 1 Assessment & Plan Assessment & Plan (1) Tubular adenoma of colon: Comment: Very pleasant 47-year-old Gent Many questions answered to his satisfaction Code(s): D12.6 - Benign neoplasm of colon, unspecified Plan: Repeat colonoscopy 5 years AFD relatives begin screening at age 35 (2) Diverticulosis of colon: Code(s): K57.30 - Diverticulosis of large intestine without perforation or abscess without bleeding Plan: HFD foods to avoid ER protocol (3) Hemorrhoids: Code(s): K64.9 - Unspecified hemorrhoids Plan: avoid straining HFD Plan Repeat colonoscopy 5 years-reminder to be placed AFD relatives begin screening at age 35 HFD avoid straining foods to avoid ER protocol Encouraged to call questions or concerns Patient Instructions: Repeat colonoscopy 5 years AFD relatives begin screening at age 35 HFD foods to avoid ER protocol Coding Level of Care Code Est Pt Level 3 (91052) Diagnoses Tubular adenoma of colon D12.6 Diverticulosis of colon K57.30 Hemorrhoids K64.9 Time Spent (min) 30
[2022-12-05 08:18] VITALS: BP 92/55; PULSE 65
== END 2022-12-05 09:16 | disposition home or self-care (01) ==
PROVIDERS: PCP Nurse Practitioner Family; Visit Provider Physician Assistant
DX: D12.6 Benign neoplasm of colon, unspecified (principal); K57.30 Diverticulosis of large intestine without perforation or abscess without bleeding; K64.9 Unspecified hemorrhoids
CPT/HCPCS: 99213

== ENCOUNTER → 2022-12-05 07:49 | Outpatient (BNVA) | payer OTHER, SELFPAY | PROVIDERS: PCP Nurse Practitioner Family; Visit Provider Physician Assistant | DX: K57.30 Diverticulosis of large intestine without perforation or abscess without bleeding (principal); D12.2 Benign neoplasm of ascending colon; K64.9 Unspecified hemorrhoids; Z98.890 Other specified postprocedural states | CPT/HCPCS: 99212 ==

== ENCOUNTER 2023-02-10 08:56 | Outpatient (AMB) | payer OTHER, SELFPAY ==
[2023-02-10 09:58] VITALS: BP 110/70; PULSE 86; O2SAT 99; BMI 30.2
--- NOTE | 2023-02-10 09:58 | MHC.OFFWIV ---
Intake Vital Signs 02/10/23 09:58 Height 5 ft 2 in Weight 74.843 kg BMI 30.2 BP 110/70 Blood Pressure Location Rt brachial Position Sitting Pulse 86 Pulse Source Pulse Oximeter Pulse Oximetry (%) 99 Oxygen Delivery Method Room Air Oxygen Flow Rate 97.9 Intake Visit Reasons: EP something stuck in RT ft masked in lobby Intake Note: pt is here today for something stuck in rt ft started Patient Tobacco Use Status: Current everyday Tobacco user Allergies No Known Allergies Allergy (Verified 02/10/23 09:59) Do you need a note to return to daycare/school/sports/work: Yes HPI HPI Comments History of Present Illness Details 47-year-old male presents with foreign body to right foot for the past year and half, patient reports he thinks there may be would in the arch of his foot he got this in [place] and has not gotten it taken out yet. He is requesting that I take it out. Reports it hurts after he stands on it for prolonged periods of time. He then proceeds to tell me it might actually not be would and he is not sure exactly with in his foot. Denies fevers, chills, numbness, tingling. Physical exam significant 5/5 strength to bilateral upper and lower extremities 2+ DP,at,pt pulses equal and b/l + FB palpated deep into arch of r foot. Concerns for foreign body in right foot, arch of the foot, it has been awhile since this happened, concerns that this may be complicated removal at an urgent care setting. Explained to patient he may have to follow up with General surgery. Will obtain x-ray to get a an idea of what patient may have in his foot. No signs of neurovascular compromise, threat to Knight, cellulitis. Educated patient on diagnosis and treatment plan, answered all question, patient verbalizes understanding. At this time patient will be discharged home, advised to return with new or worsening symptoms. Educated on worrisome signs and symptoms and when to return. At this time I feel comfortable discharge home. [facility] Medical History Anxiety PTSD (post-traumatic stress disorder) Heartburn Asthma Headache Hepatitis C Surgical History Hx of colonoscopy Hx of esophagogastroduodenoscopy Family History Father Depression Substance use disorder Mother Liver failure Alcoholism Substance use disorder Brother Substance use disorder Mental health disorder Sister Mental health disorder Social History Housing: House Alcohol intake: never Patient Tobacco Use Status: Current everyday Tobacco user Tobacco use type: Cigarette Cigarettes Per Day: 18 Years Smoked: since his 20s e-Cigarette/Vaping Use: Never Used Second Hand Smoke Exposure: Yes service: No Current occupational status: employed Current occupation: [employer] Current occupational exposures/hazards: Yes Cognitive needs: No Hearing needs: No Vision needs: No Review of Systems Const Details: Constitutional : No Weight loss, No Fever, No Chills, No Fatigue, No Malaise ENT/Mouth : No sore throat, No Rhinorrhea Eyes: No Eye Pain, No Swelling, No Redness Cardiovascular : No Chest Pain, No SOB, No Dyspnea on Exertion, No Orthopnea, No Edema, No Palpitations Respiratory : No Cough, No Sputum, No Wheezing Gastrointestinal : No Nausea, No Vomiting, No Diarrhea, No Constipation, No abdominal Pain, No Hematochezia, No Melena Genitourinary : No Dysuria, No Urinary Frequency, No Hematuria, Musculoskeletal : No joint pain, No Myalgias, No Joint Swelling Skin : No Skin Lesions, No rash Neuro : No Weakness, No Numbness, No Dizziness, No Headache Psych : No Anxiety/Panic, No Depression All other systems reviewed and are negative All systems reviewed & are unremarkable except as noted in HPI and below Physical Exam Vital Signs: Last Vital Signs Pulse 86 02/10/23 09:58 BP 110/70 02/10/23 09:58 Pulse Ox 99 02/10/23 09:58 Oxygen Delivery Method Room Air 02/10/23 09:58 Oxygen Flow Rate 97.9 02/10/23 09:58 BMI result Body Mass Index 30.2 Vital signs stable Appearance: Alert.? Oriented X3.? No acute distress.? Head: Normocephalic, atraumatic, no step-offs or deformities Eyes: Pupils equal, round and reactive to light.? CVS: Normal heart rate and rhythm.? Pulses normal.? Respiratory: No respiratory distress.? Breath sounds normal.? Abdomen: Soft and nontender.? Skin: Skin warm and dry.? Normal skin color.? Normal skin turgor.? Extremities: No lower extremity edema.? No calf ttp. 5/5 strength to bilateral upper and lower extremities 2+ DP,at,pt pulses equal and b/l + FB palpated deep into arch of r foot. Neuro: Oriented X 3.? No motor deficit.? No sensory deficit. CN 2-12 intact Assessment & Plan Assessment & Plan (1) Foreign body (FB) in soft tissue: Code(s): M79.5 - Residual foreign body in soft tissue Plan Take your medications as prescribed. If you were prescribed antibiotics today, it is important that you take your medication to their entirety, do not skip any doses, do not finish them early. Follow-up with your primary care provider this week. Return to the emergency department with new or worsening symptoms. Such as fevers, chills, chest pain, shortness of breath, nausea, vomiting, dizziness, headache, vision changes, lethargy In case of emergency call 911 Orders: Orders XR foot RT 2V Today M79.5 - Residual foreign body in soft tissue Referrals Orthopedics Referral M79.5 - Residual foreign body in soft tissue Coding Level of Care Code Est Pt Level 3 (53844) Diagnoses Foreign body (FB) in soft tissue M79.5
== END 2023-02-10 10:23 | disposition home or self-care (01) ==
PROVIDERS: PCP Nurse Practitioner Family; Visit Provider Physician Assistant
DX: M79.5 Residual foreign body in soft tissue (principal)
CPT/HCPCS: 99213

== ENCOUNTER 2023-02-10 10:05 | Outpatient (REF) | payer OTHER, SELFPAY ==
--- NOTE | ~2023-02-10 | XR_ITS ---
EXAMINATION: XR FOOT, RIGHT CLINICAL INFORMATION: Evaluate for retained foreign body. COMPARISON: None available. TECHNIQUE: AP, lateral, and oblique views of the right foot. FINDINGS: Alignment is anatomic. Joint spaces are maintained. No displaced fracture. No retained radiopaque foreign body. Achilles enthesopathy. XR/XR foot RT 2V IMPRESSION: No acute abnormality.
== END 2023-02-10 10:06 | disposition home or self-care (01) ==
LOC: HO.HMGCX 10:05
PROVIDERS: PCP Nurse Practitioner Family; Visit Provider Physician Assistant
DX: M79.5 Residual foreign body in soft tissue (principal)
CPT/HCPCS: 73620

== ENCOUNTER 2023-02-21 10:43 | Outpatient (AMB) | payer OTHER, SELFPAY ==
--- NOTE | 2023-02-21 10:45 | MHC.OFFVIS ---
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 Patient reports about 1.5 years ago while in [place] the beach something had stuck in his foot. He was recently seen by PCP due to sharp pain with applying pressure, attempted to remove FB however this was unsuccessful. 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 He was seen by his PCP due to his pain who referred him to our office. He currently states he has sharp pain in his foot for about 2 months which comes with applying pressure. [facility] Medical History Anxiety PTSD (post-traumatic stress disorder) Heartburn Asthma Headache Hepatitis C Surgical History Hx of colonoscopy Hx of esophagogastroduodenoscopy Family History Father Depression Substance use disorder Mother Liver failure Alcoholism Substance use disorder Brother Substance use disorder Mental health disorder Sister Mental health disorder Social History (Updated 02/21/23 @ 10:52 by KATHIE Banerjee) Housing: House Alcohol intake: never Patient Tobacco Use Status: Current everyday Tobacco user Tobacco use type: Cigarette Cigarettes Per Day: 18 Years Smoked: since his 20s e-Cigarette/Vaping Use: Never Used Second Hand Smoke Exposure: Yes service: No Current occupational status: employed Current occupation: [employer] Current occupational exposures/hazards: Yes Cognitive needs: No Hearing needs: No Vision needs: No Review of Systems Const All systems reviewed & are unremarkable except as noted in HPI and below Physical Exam Vital Signs: BMI result Body Mass Index 30.2 Const General: cooperative, healthy appearing, comfortable, no acute distress, well developed and alert Orientation/consciousness: patient oriented x3 HEENT Head: Yes normal to inspection, Yes normocephalic and Yes atraumatic Eyes General: appearance normal, both eyes and all related structures Resp Effort & Inspection: normal respiratory effort and able to speak in complete sentences Cardio Rate: regular rate Peripheral pulses: Peripheral pulses 2+ throughout GI Palpation (GI): Soft to palpation Skin Lesions: no lesions Rashes: no rashes Neuro General: patient oriented x3 Extrem Other: Right foot Normal to inspection. He does have an area at the bottom of foot that is the size of a pea that is tender to palpation. No evidence of infection. NVI. Assessment & Plan Assessment & Plan (1) Foreign body in soft tissue: Code(s): M79.5 - Residual foreign body in soft tissue Plan An order for US has been placed to further evaluate the etiology and position of the foreign to determine the next step on whether or not we can remove this. Orders: Orders US venous duplex LE RT Today M79.5 - Residual foreign body in soft tissue Patient Instructions: Scribed for Mari Kendrick PA-C, by Marciano Patricio medical instructor, on 02/21/2023 at 11:00 AM EST. I, Mari Kendrick PA-C, have personally reviewed and agree with the information entered by the scribe. Coding Level of Care Code New Pt Level 3 (61317) Diagnoses Foreign body in soft tissue M79.5
[2023-02-21 10:49] VITALS: BMI 30.2
== END 2023-02-21 11:22 | disposition home or self-care (01) ==
PROVIDERS: PCP Nurse Practitioner Family; Visit Provider Physician Assistant
DX: M79.5 Residual foreign body in soft tissue (principal)
CPT/HCPCS: 99203

== ENCOUNTER → 2023-02-21 10:43 | Outpatient (BNVA) | payer OTHER, SELFPAY | PROVIDERS: PCP Nurse Practitioner Family; Visit Provider Physician Assistant | DX: M79.5 Residual foreign body in soft tissue (principal) | CPT/HCPCS: 99202 ==

== ENCOUNTER 2023-03-11 12:49 | Outpatient (REF) | payer OTHER, SELFPAY ==
--- NOTE | ~2023-03-11 | US_ITS ---
ULTRASOUND SOFT TISSUES RIGHT FOOT CLINICAL: Question foreign body in lateral plantar soft tissues of the right foot. TECHNIQUE: Using a linear transducer with grayscale and color modalities, ultrasound examination is performed of the lateral plantar aspect of the right foot, at the area of clinical concern. FINDINGS: The cutaneous, subcutaneous, muscular and fascial planes are unremarkable. Corresponding with the palpable finding, a 4 mm anechoic subcutaneous fluid collection is seen. No residual foreign body is noted. There is no associated color Doppler flow. US/US extremity nonvascular IMPRESSION: A tiny subcutaneous fluid collection is seen in the area of clinical concern. No residual foreign body is noted.
== END 2023-03-11 12:50 | disposition home or self-care (01) ==
LOC: HO.HMGCX 12:49
PROVIDERS: PCP Nurse Practitioner Family; Visit Provider Physician Assistant
DX: M79.5 Residual foreign body in soft tissue (principal)
CPT/HCPCS: 76882

== ENCOUNTER 2023-03-31 15:11 | Outpatient (AMB) | payer OTHER, SELFPAY ==
--- NOTE | 2023-03-31 15:12 | A.OFFVIS_ITS ---
Intake Intake Visit Reasons: tele- US soft tissue right foot review Intake Note: Jason is a 47 year old male who presents today via telephone for Ultrasound results of his right foot. He states that he ahs no changes. Allergies No Known Allergies Allergy (Verified 03/31/23 15:13) HPI HPI Comments History of Present Illness Details F/u right foot s/p Ultrasound . He states there continues to be pain along the bottom of the foot. He denies drainage. PFSH Medical History Anxiety PTSD (post-traumatic stress disorder) Heartburn Asthma Headache Hepatitis C Surgical History Hx of colonoscopy Hx of esophagogastroduodenoscopy Family History Father Depression Substance use disorder Mother Liver failure Alcoholism Substance use disorder Brother Substance use disorder Mental health disorder Sister Mental health disorder Social History Housing: House Alcohol intake: never Patient Tobacco Use Status: Current everyday Tobacco user Tobacco use type: Cigarette Cigarettes Per Day: 18 Years Smoked: since his 20s e-Cigarette/Vaping Use: Never Used Second Hand Smoke Exposure: Yes service: No Current occupational status: employed Current occupation: [employer] Current occupational exposures/hazards: Yes Cognitive needs: No Hearing needs: No Vision needs: No Physical Exam Resp Effort & Inspection: normal respiratory effort and able to speak in complete sentences Results Reviewed Results Reviewed: Ultrasound 03/11/23 right foot IMPRESSION: A tiny subcutaneous fluid collection is seen in the area of clinical concern. No residual foreign body is noted. Assessment & Plan Assessment & Plan (1) Right foot pain: Code(s): M79.671 - Pain in right foot Plan: I explained to the patient the findings on ultrasound, negative for foreign body. He is concerned about his ongoing discomfort; therefore, I recommend referral to podiatry for further evaluation to determine if he would benefit from any type of exploration/debridement procedure. He is content with this plan and a referral has been placed. Orders: Referrals Podiatry Referral M79.671 - Pain in right foot Telehealth Telehealth Location of provider rendering services: practice address Location of patient: address on file Patient Identification confirmed using: Name, : Yes Telehealth method: voice only Patient verbally consented to treatment: Yes Patient verbally consented to billing insurance company: Yes Patient informed of any privacy concerns related to visit: Yes Minutes spent on Phone/Video with Pt.: 10 Coding Level of Care Code Tele Est Pt Level 3 (25399) Diagnoses Right foot pain M79.671
== END 2023-03-31 15:20 | disposition home or self-care (01) ==
LOC: HO.HOS 15:11
PROVIDERS: PCP Nurse Practitioner Family; Visit Provider Physician Assistant
DX: M79.671 Pain in right foot (principal)
CPT/HCPCS: 99213

== ENCOUNTER → 2023-03-31 15:11 | Outpatient (BNVA) | payer OTHER, SELFPAY | PROVIDERS: PCP Nurse Practitioner Family; Visit Provider Physician Assistant ==

== ENCOUNTER 2023-10-16 14:27 | Outpatient (AMB) | payer OTHER, SELFPAY ==
[2023-10-16 14:38] VITALS: BP 112/74; PULSE 64; TEMP 37.1; O2SAT 98; BMI 25.7
--- NOTE | 2023-10-16 14:38 | AM.OFFWIN_ITS ---
Intake Vital Signs 10/16/23 14:38 Height 5 ft 6 in Weight 159 lb BMI 25.7 BP 112/74 Blood Pressure Location Rt brachial Position Sitting Pulse 64 Pulse Source Pulse Oximeter Temp 98.8 F Temp Source Oral Pulse Oximetry (%) 98 Oxygen Delivery Method Room Air Intake Visit Reasons: EP- RT eye is blood shot Intake Note: pt c/o RT eye bloodshot. Started yesterday. Works in [employer]. Always wears glasses but no safety glasses. Didn't feel anything go in eye Patient Tobacco Use Status: Current everyday Tobacco user Allergies No Known Allergies Allergy (Verified 10/16/23 14:38) Do you need a note to return to daycare/school/sports/work: Yes HPI HPI Comments History of Present Illness Details 48 y/o male patient who presents to the walk in clinic with c/o right eye redness and itching. Denies noticing blood inside his eye for 2 days. Denies vision changes. Denies eye pain. Denies any injury to the eye. Denies URI symptoms. Denies HTN or DM disease. PFSH Medical History Anxiety PTSD (post-traumatic stress disorder) Heartburn Asthma Headache Hepatitis C Surgical History Hx of colonoscopy Hx of esophagogastroduodenoscopy Family History Father Depression Substance use disorder Mother Liver failure Alcoholism Substance use disorder Brother Substance use disorder Mental health disorder Sister Mental health disorder Social History Housing: House Alcohol intake: never Patient Tobacco Use Status: Current everyday Tobacco user Tobacco use type: Cigarette Cigarettes Per Day: 18 Years Smoked: since his 20s e-Cigarette/Vaping Use: Never Used Second Hand Smoke Exposure: Yes service: No Current occupational status: employed Current occupation: [employer] Current occupational exposures/hazards: Yes Cognitive needs: No Hearing needs: No Vision needs: No Review of Systems Const All systems reviewed & are unremarkable except as noted in HPI and below Physical Exam Vital Signs: Last Vital Signs Temp 98.8 F 10/16/23 14:38 Pulse 64 10/16/23 14:38 BP 112/74 10/16/23 14:38 Pulse Ox 98 10/16/23 14:38 Oxygen Delivery Method Room Air 10/16/23 14:38 BMI result Body Mass Index 25.7 Const General: cooperative and comfortable Orientation/consciousness: patient oriented x3 HEENT Head: Yes normocephalic Ears: external ears normal and TM's normal bilaterally General nose exam: Normal external nose present Face and sinus: Yes normal facial exam Mouth: Normal oral and palatal mucosa present Eyes Eyelids: Yes eyelids normal Conjunctivae: conjunctival abnormal bilateral conjunctival injection and subconjunctival hemorrhage; without discharge EOM: EOMs intact bilaterally Direct Ophthalmoscopy: normal light reflex Neuro General: patient oriented x3, gait normal and moves all extremities Psych Speech and movement: Normal speech and movement present Assessment & Plan Assessment & Plan (1) Cornea abrasion: Code(s): S05.00XA - Injury of conjunctiva and corneal abrasion without foreign body, unspecified eye, initial encounter Qualifiers: Encounter type: initial encounter Laterality: right Qualified Code(s): S05.01XA - Injury of conjunctiva and corneal abrasion without foreign body, right eye, initial encounter Plan: Keep eyes clean and dry Wear eye franks at work Use the Abx as prescribed F/U with eye doctor if not better. Medications: New erythromycin 1 appl ophthalmic (eye) BEDTIME 7 days 3.5 grams 0RF S05.01XA - Injury of conjunctiva and corneal abrasion without foreign body, right eye, initial encounter Coding Level of Care Code Est Pt Level 3 (62599) Diagnoses Abrasion of right cornea, initial encounter S05.01XA Encounter type: initial encounter Laterality: right Time Spent (min) 15
== END 2023-10-16 15:23 | disposition home or self-care (01) ==
PROVIDERS: PCP Nurse Practitioner Family; Visit Provider Nurse Practitioner Family
DX: S05.01XA Injury of conjunctiva and corneal abrasion without foreign body, right eye, initial encounter (principal)
CPT/HCPCS: 99213

== ENCOUNTER 2024-12-20 13:51 | Outpatient (AMB) | payer OTHER, SELFPAY ==
--- NOTE | 2024-12-20 14:11 | MHC.OFFWIV ---
Intake Vital Signs 12/20/24 14:22 Height 5 ft 6 in Weight 164 lb BMI 26.5 BP 100/60 Blood Pressure Location Lt brachial Position Sitting Pulse 92 Temp 98.2 F Temp Source Oral Pulse Oximetry (%) 95 Intake Visit Reasons: EP Right hand pinky finger injury [phone] Intake Note: The patient cut his pinky finger yesterday, at home moving metal Patient Tobacco Use Status: Current everyday Tobacco user Allergies No Known Allergies Allergy (Verified 12/20/24 14:17) Do you need a note to return to daycare/school/sports/work: Yes HPI HPI Comments History of Present Illness Details 49 y/o Male patient who presents to the walk in clinic with c/o right index finger injury. Pt was moving sharp heavy metal at work ([employer]) when he accidentally cut his right finger this morning. [facility] Medical History (Updated 12/20/24 @ 15:39 by Margaret Lopez NP) Laceration of index finger Anxiety PTSD (post-traumatic stress disorder) Heartburn Asthma Headache Hepatitis C Surgical History Hx of colonoscopy Hx of esophagogastroduodenoscopy Family History Father Depression Substance use disorder Mother Liver failure Alcoholism Substance use disorder Brother Substance use disorder Mental health disorder Sister Mental health disorder Social History Housing: House Alcohol intake: never Patient Tobacco Use Status: Current everyday Tobacco user Tobacco use type: Cigarette Cigarettes Per Day: 18 Years Smoked: since his 20s e-Cigarette/Vaping Use: Never Used Second Hand Smoke Exposure: Yes service: No Current occupational status: employed Current occupation: [employer] Current occupational exposures/hazards: Yes Cognitive needs: No Hearing needs: No Vision needs: No Review of Systems Const All systems reviewed & are unremarkable except as noted in HPI and below Physical Exam Vital Signs: Last Vital Signs Temp 98.2 F 12/20/24 14:22 Pulse 92 12/20/24 14:22 BP 100/60 12/20/24 14:22 Pulse Ox 95 12/20/24 14:22 BMI result Body Mass Index 26.5 Const General: no acute distress Nutritional Appearance: well nourished Orientation/consciousness: patient oriented x3 Neuro General: patient oriented x3, gait normal and moves all extremities Extrem Right upper extremity: normal capillary refill and Extremity exam: right hand Details: neurosensory exam normal, tenderness Location: of the 2nd digit Location: on the dorsal aspect and on the palmar aspect and normal ROM of fingers Hand/finger images:  1. Approximately 1-inch superficial laceration to the right index finger with jagged wound margins and no active bleeding. Psych Speech and movement: Normal speech and movement present Immunizations Boostrix Tdap 2.5 Lf unit-8 mcg-5 Lf/0.5 mL intramuscular syringe Performing Provider: Margaret Lopez NP Performing Location: [facility] [place] [facility] [place] Administered by: Jamir Pacheco CMA on 12/20/24 15:59 Dose Route Admin Location Dispensed Lot Number Expiration Date [facility] [employer] 0.5 mL IM Right Deltoid 0.5 mL [id number] 12/24/26 55648-545-54 [employer] Total Dispensed Waste 0.5 mL 0 % VIS Given Date VIS Provided VIS Publication Date 12/20/24 Single Vaccine 20 Eligibility Eligibility Date Funding Source Not [facility] Eligible 12/20/24 Private Assessment & Plan Assessment & Plan (1) Laceration of index finger: Code(s): S61.218A - Laceration without foreign body of other finger without damage to nail, initial encounter Qualifiers: Damage to nail status: unspecified Encounter type: initial encounter Foreign body presence: without foreign body Laterality: right Qualified Code(s): S61.210A - Laceration without foreign body of right index finger without damage to nail, initial encounter Plan: Deep clean the wound Wound Superficial no need for Stitches Pt requested Glue (Dermabond) - declined stitches. Wrapped the wound with Steris and Coban dressing. Keep the area clean and dry for the next 24 hours. Ordered Tdap and Keflex for prophylaxis since it is a dirty wound. Orders: Orders TDaP Immunization Today Z23 - Encounter for immunization Medications: New cephalexin 500 mg PO BID 10 caps 0RF 5 days S61.210A - Laceration without foreign body of right index finger without damage to nail, initial encounter Coding Level of Care Code Est Pt Level 4 (57044) Diagnoses Laceration of right index finger without foreign body, nail damage status unspecified, initial encounter S61.210A Damage to nail status: unspecified Encounter type: initial encounter Foreign body presence: without foreign body Laterality: right Time Spent (min) 20
[2024-12-20 14:22] VITALS: BP 100/60; PULSE 92; TEMP 36.8; O2SAT 95; BMI 26.5
== END 2024-12-20 15:50 | disposition home or self-care (01) ==
PROVIDERS: PCP Nurse Practitioner Family; Visit Provider Nurse Practitioner Family
DX: Z23 Encounter for immunization (principal); S61.210A Laceration without foreign body of right index finger without damage to nail, initial encounter

== ENCOUNTER → 2024-12-20 13:51 | Outpatient (BNVA) | payer OTHER, SELFPAY | PROVIDERS: PCP Nurse Practitioner Family; Visit Provider Nurse Practitioner Family | DX: S61.210A Laceration without foreign body of right index finger without damage to nail, initial encounter (principal); W26.8XXA Contact with other sharp object(s), not elsewhere classified, initial encounter; Y93.9 Activity, unspecified; Y92.9 Unspecified place or not applicable; Y99.9 Unspecified external cause status; Z23 Encounter for immunization | CPT/HCPCS: 90471; 90715; 99212 ==